=== PATIENT | male | born 1990 | race Caucasian/White ===

== ENCOUNTER 2024-08-31 01:22 | Inpatient (IN) | payer OTHER ==
[~2024-08-31] VITALS: Ht 175.3 cm; Wt 85.0 kg
[2024-08-31 02:46] LABS: LYMPHOCYTES # (AUTO) 2.3 K/uL (1.0-4.8); MONOCYTES # (AUTO) 0.6 K/uL (0.1-1.0); RED CELL DISTRIBUTION WIDTH 12.7 % (11.5-14.5)
[2024-08-31 02:48] LABS: ANION GAP 6 mmol/L (8-16); CALCIUM, TOTAL 9.5 mg/dL (8.8-10.5); CARBON DIOXIDE 32 mmol/L (22-29); CHLORIDE 103 mmol/L (98-107); CREATININE 1.03 mg/dL (0.60-1.30); GLOMERULAR FILTR. RATE CALC > 60 mL/min (>60); GLUCOSE,RANDOM 107 mg/dL (70-110); POTASSIUM 4.1 mmol/L (3.5-5.1); SODIUM SERUM 141 mmol/L (136-145); UREA NITROGEN, BLOOD 9 mg/dL (7-18)
[2024-08-31 02:57] LABS: BASOPHILS % (AUTO) 0.6 % (0.0-2.0); EOSINOPHILS % (AUTO) 0.7 % (1.0-6.0); HEMATOCRIT 44.1 % (41-53); HEMOGLOBIN 15.1 g/dL (13.5-17.5); LYMPHOCYTES % (AUTO) 27.5 % (22.0-44.0); MEAN CORPUSCULAR HEMOGLOBIN 30.9 pg (26.0-34.0); MEAN CORPUSCULAR HGB CONC 34.2 G/dL (31.0-37.0); MEAN CORPUSCULAR VOLUME 90 fL (80-100); MONOCYTES % (AUTO) 7.2 % (2.0-9.0); NEUTROPHILS # (AUTO) 5.4 K/uL (1.8-7.7); PLATELET COUNT (AUTO) 289 K/uL (150-450); RED BLOOD CELL COUNT(AUTO) 4.89 MIL/uL (4.50-5.90); WHITE BLOOD COUNT (AUTO) 8.5 K/uL (4.5-11.0)
[2024-08-31 03:16] LABS: COVID AG,FIA SOURCE NASAL SWAB
[2024-08-31 03:21] LABS: ALCOHOL, BLOOD (SERUM) < 3 mg/dL (0-10)
[2024-08-31] MEDS ORDERED: LORazepam 2 MG TABLET PO PRN (03:30)
[2024-08-31 03:38] LABS: APPEARANCE,URINE CLEAR (CLEAR); BILIRUBIN,URINE NEGATIVE (NEGATIVE); COLOR,URINE YELLOW (YELLOW); GLUCOSE, URINE (UA) NEGATIVE (NEGATIVE); KETONES,URINE TRACE mg/dL (NEGATIVE); LEUKOCYTE ESTERASE ,URINE NEGATIVE (NEGATIVE); NITRATE,URINE NEGATIVE (NEGATIVE); OCCULT BLOOD,URINE NEGATIVE (NEGATIVE); PROTEIN,URINE TRACE mg/dL (NEGATIVE); SPECIFIC GRAVITIY, URINE 1.024 (1.003-1.030); UROBILINOGEN,URINE <=1.0 mg/dL (<=1.0)
[2024-08-31 03:44] LABS: SARS-COV2 (COVID) ANTIGEN,FIA Negative (Negative)
[2024-08-31 03:46] LABS: ALCOHOL, URINE DRUG SCREEN NEGATIVE (NEGATIVE); AMPHET/METH SCREEN,URINE NEGATIVE (NEGATIVE); BARBITURATE SCREEN, URINE NEGATIVE (NEGATIVE); BENZODIAZEPINES SCREEN,URINE NEGATIVE (NEGATIVE); CANNABINOID SCREEN,URINE NEGATIVE (NEGATIVE); COCAINE SCREEN,URINE NEGATIVE (NEGATIVE); METHADONE SCREEN, URINE NEGATIVE (NEGATIVE); OPIATE SCREEN,URINE NEGATIVE (NEGATIVE); PHENCYCLIDINE SCREEN,URINE NEGATIVE (NEGATIVE)
[2024-08-31 05:28] VITALS: BP 148/70; PULSE 89; RESP 18; TEMP 97.5; O2SAT 99
[2024-08-31 05:33] VITALS: BP 140/70; PULSE 89; RESP 18; TEMP 97.5; O2SAT 100
[2024-08-31 05:45] VITALS: BP 140/70; PULSE 89; RESP 18; TEMP 97.5; O2SAT 100
[2024-08-31] MEDS ORDERED: ACETAMINOPHEN 325 MG TABLET PO PRN (10:15)
[2024-08-31] MEDS ORDERED: BACITRACIN 28 GM OINTMENT TP PRN (10:15)
[2024-08-31] MEDS ORDERED: IBUPROFEN 600 MG TABLET PO PRN (10:15)
[2024-08-31] MEDS ORDERED: MAG HYDROX/ALUMINUM HYD/SIMETH ES 30 ML SUSPENSION UDCUP PO PRN (10:15)
[2024-08-31] MEDS ORDERED: CloNIDine HCL 0.1 MG TABLET PO PRN (10:15)
[2024-08-31] MEDS ORDERED: PETROLATUM,WHITE 28 GM JELLY TP PRN (10:15)
[2024-08-31] MEDS ORDERED: OMEPRAZOLE 20 MG CAPSULE PO PRN (10:15)
[2024-08-31] MEDS ORDERED: ALBUTEROL SULFATE HFA 90 MCG/PUFF 8 GM INHALER IH PRN (10:15)
[2024-08-31] MEDS ORDERED: DOCUSATE SODIUM 100 MG CAPSULE PO PRN (10:15)
[2024-08-31] MEDS ORDERED: LOPERAMIDE HCL 2 MG CAPSULE PO PRN (10:15)
[2024-08-31] MEDS ORDERED: MAGNESIUM HYDROXIDE SUSPENSION 30 ML UDCUP PO PRN (10:15)
[2024-08-31] MEDS ORDERED: BENZOCAINE/MENTHOL LOZENGE PO PRN (10:15)
[2024-08-31] MEDS ORDERED: ONDANSETRON 4 MG TABLET PO PRN (10:15)
[2024-08-31 10:42] VITALS: BP 116/65; PULSE 78; RESP 18; TEMP 97.9; O2SAT 98
[2024-08-31] MEDS: HydrOXYzine PAMOATE 25 MG CAPSULE PO SCH (16:56)
[2024-08-31 21:18] VITALS: BP 135/76; PULSE 73; RESP 18; TEMP 98.1; O2SAT 98
[2024-08-31] MEDS: HALOPERIDOL 5 MG TABLET PO PRN (21:27)
[2024-08-31] MEDS: ZOLPIDEM TARTRATE 10 MG TABLET PO PRN (21:27)
[2024-09-01 08:46] VITALS: BP 114/63; PULSE 66; RESP 18; TEMP 97.8; O2SAT 97
[2024-09-01 08:48] VITALS: BP 114/63; PULSE 66; RESP 18; TEMP 97.8; O2SAT 97
[2024-09-01] MEDS ORDERED: HYDR-4808 PO (09:54)
== END 2024-09-01 17:36 | disposition home or self-care (01) | DRG 881 ==
LOC: EMS 01:22 → 3EI 04:11
PROVIDERS: ADMIT Psychiatry & Neurology Psychiatry; ATTEND Psychiatry & Neurology Psychiatry
DX: F32.9 Major depressive disorder, single episode, unspecified (principal); F41.9 Anxiety disorder, unspecified; F10.90 Alcohol use, unspecified, uncomplicated; G47.00 Insomnia, unspecified; Z20.822 Contact with and (suspected) exposure to COVID-19; I10 Essential (primary) hypertension; K59.00 Constipation, unspecified; F43.10 Post-traumatic stress disorder, unspecified; K21.9 Gastro-esophageal reflux disease without esophagitis
CPT/HCPCS: 80048; 80307; 81003; 85025; 99285; G0480